=== PATIENT | female | born 1955 | race Caucasian/White ===

== ENCOUNTER 2020-01-31 14:20 | Emergency (ER) | payer MEDICARE, SELFPAY ==
[2020-01-31 14:21] VITALS: BP 186/75; PULSE 68; RESP 16; TEMP 36.6; O2SAT 97; BMI 39.1
--- NOTE | 2020-01-31 14:23 | EKG12_ITS ---
Test Reason : Blood Pressure : / mmHG Vent. Rate : 068 BPM Atrial Rate : 068 BPM P-R Int : 182 ms QRS Dur : 080 ms QT Int : 410 ms P-R-T Axes : 019 001 029 degrees QTc Int : 435 ms Normal sinus rhythm Normal ECG Confirmed by MARIA DEL ROSARIO GUPTA, NITIN ([id number]), writer editor PRINCESS HATCH ([id number]) on 02/08/2020 11:11:37 A M Referred By: YULY Confirmed By:JIMMY MIX MD
--- NOTE | 2020-01-31 14:28 | ED.VIS.GEN ---
History of Present Illness Chief Complaint: Chest Pain Informant: Patient Narrative: 64-year-old female presenting with intermittent chest pressure. She states that this started on Tuesday. She states that it initially was lasting about 10 minutes at a time. Lightheadedness, dizziness, cough, shortness of breath, diaphoresis associated with this. She says that started to have this mild chest pressure at about 930 and is been persistent until now it is down to a 1 on the pain scale. Does not have any known exposure to COVID?19. She does state that she lost her sense of taste on Tuesday. She has no other symptoms except for the chest pain. Her only medical problems are seizure disorder and anxiety and depression. She denies any cardiac history. Last stress test was 18 years ago. Past Medical History - Allergies and Home Meds Allergies/Adverse Reactions: Allergies dicloxacillin [Dicloxacillin] Allergy (Verified 01/31/20 14:25) Rash latex Allergy (Verified 01/31/20 14:25) Rash morphine Adverse Reaction (Verified 01/31/20 14:25) HALLUCINATE Primary Care Physician: Cliff Sparks MD [Primary Care Provider] - Past Medical History: - - Anxiety, depression, seizure disorder Surgical History: noncontributory Lives: Alone Smoking Status: Never smoker Alcohol: None Drugs: None Review of Systems General: Reports: - - Loss of taste. Denies: Chills, Fever Eyes: Denies: Visual changes - bilaterally, Diplopia ENT: Denies: Rhinorrhea, Sore throat Cardiovascular: Reports: Chest pain Respiratory: Denies: Dyspnea, Cough, Sputum Gastrointestinal: Denies: Abdominal pain, Nausea, Vomiting Genitourinary: Reports: Frequency Musculoskeletal: Denies: Myalgias, Arthralgias Skin: Denies: Rash, Abscess Neurological: Denies: Headache, Weakness Psych: Denies: Depression, Anxiety Physical Exam Vital Signs/Narrative: Vital Signs Temp Pulse Resp BP Pulse Ox 01/31/20 14:21 97.8 F 68 16 186/75 H 97 General: Well nourished, No Acute Distress Head: Normocephalic, Atraumatic Eyes: Perrl, EOMI. Negative for: Scleral icterus ENT: Moist mucous membranes. Negative for: No rhinorrhea Cardiovascular: Regular rate, Regular rhythm Respiratory: No distress, CTA bilaterally. Negative for: Wheezing Extremities: Nontender, No edema Skin: Normal color, No rash Neurological: Alert, Oriented x3 Psychological: Normal affect, Normal Mood Diagnostic/Tx/Re-eval Clinical Impression(s) from Imaging Studies Chest X-Ray 01/31/20 14:50 IMPRESSION: Normal x-ray examination of the chest. Electronically Signed: Willard Don MD at 15:09 EDT , Service support , Laboratory Data 01/31/20 01/31/20 01/31/20 14:23 14:23 14:23 WBC 6.3 RBC 3.94 L Hgb 13.0 Hct 38.1 MCV 96.7 MCH 33.0 H MCHC 34.1 RDW Std Deviation 42.5 RDW Coeff of Chris 11.9 Plt Count 193 MPV 11.2 Immature Gran % (Auto) 0.300 Neut % (Auto) 50.4 Lymph % (Auto) 39.3 Bled[place]e % (Auto) 7.5 Eos % (Auto) 2.2 Baso % (Auto) 0.3 Absolute Neuts (auto) 3.2 Absolute Lymphs (auto) 2.47 Nucleated RBC % 0 PT 12.5 INR 1.0 D-Dimer Quant (PE/DVT) Sodium 139 Potassium 3.8 Chloride 105 Carbon Dioxide 27.0 Anion Gap 7 BUN 12 Creatinine 0.88 Estim Creat Clear Calc 62.81 Est GFR (MDRD) Af Amer 83 Est GFR (MDRD) Non-Af 69 BUN/Creatinine Ratio 13.7 Glucose 112 H Calcium 8.9 Troponin I < 0.015 Urine Color Urine Clarity Urine pH Ur Specific [place] Urine Protein Urine Glucose (UA) Urine Ketones Urine Occult Blood Urine Nitrite Urine Bilirubin Urine Urobilinogen Ur Leukocyte Esterase Urine RBC Urine WBC Ur Squamous Epith Cells Urine Bacteria Urine Mucus 01/31/20 01/31/20 01/31/20 14:23 16:13 16:59 WBC RBC Hgb Hct MCV MCH MCHC RDW Std Deviation RDW Coeff of Chris Plt Count MPV Immature Gran % (Auto) Neut % (Auto) Lymph % (Auto) Bledso[place] % (Auto) Eos % (Auto) Baso % (Auto) Absolute Neuts (auto) Absolute Lymphs (auto) Nucleated RBC % PT INR D-Dimer Quant (PE/DVT) 0.48 Sodium Potassium Chloride Carbon Dioxide Anion Gap BUN Creatinine Estim Creat Clear Calc Est GFR (MDRD) Af Amer Est GFR (MDRD) Non-Af BUN/Creatinine Ratio Glucose Calcium Troponin I < 0.015 Urine Color Yellow Urine Clarity Sl. Cloudy Urine pH 7.0 Ur Specific [place] 1.005 Urine Protein Negative Urine Glucose (UA) Normal Urine Ketones Negative Urine Occult Blood Negative Urine Nitrite Negative Urine Bilirubin Negative Urine Urobilinogen Normal Ur Leukocyte Esterase 100 H Urine RBC 0 SEEN Urine WBC 5-10 SEEN Ur Squamous Epith Cells 0-5 SEEN Urine Bacteria RARE Urine Mucus 0 SEEN - Rhythm Strip Rhythm Strip: Sinus Rhythm Rate: 68 - EKG Initial EKG Interpretation: Sinus Rhythm, No Acute Injury Pattern Follow-up EKG Interpretation: Sinus Rhythm, No Acute Injury Pattern Prior: Unchanged - Medical Decision Making Patient presents for evaluation of intermittent chest pain after losing her sense of taste. She states that it feels like pressure but she has no other associated symptoms except for loss of taste. She has had pain since 930 this morning which is resolving. Her heart score is a 1. Both of her EKGs are normal sinus rhythm without any signs of ischemic injury. 2 troponins are negative. Her other lab work is normal. D-dimer is negative. Ultimately her work-up is normal I do not believe this is cardiac related patient is counseled that she should follow-up with her PCP for outpatient stress testing and follow-up for her chest pain. She is counseled she may return at anytime with any concern. Patient stable for discharge. Impression: 1. Chest pain #2 loss of taste 3. Possible exposure to COVID-19 ED Disposition - Plan for ED Patient: Disposition: Home or Assisted Living Instructions: ED Chest Pain Atypical Unkn Cause Referrals: Cliff Sparks MD [Primary Care Provider] -
[2020-01-31 14:39] LABS: Absolute Lymphocyte Count 2.47 X10^3/uL (0.83-4.51); Absolute Neutrophil Count 3.2 X10^3/uL (2.0-7.7); Basophil# 0.02 X10^3/uL; Basophil% 0.3 % (0-1); Eosinophil# 0.14 X10^3/uL; Eosinophils% 2.2 % (0-5); Hematocrit 38.1 % (37-47); Lymphocyte # 2.47 X10^3/ul (4.0); Lymphocyte % 39.3 % (19-41); Mean Corp Hgb Conc 34.1 g/dL (32-36); Mean Corpuscular Volume 96.7 fL (81-99); Mean Platelet Vol. 11.2 fl (6.2-12.0); Monocyte# 0.47 X10^3/uL; Monocyte% 7.5 % (0-10); NRBC Flagged by Analyzer 0 % (0-5); Neutrophil # 3.16 X10^3/uL (2.7-7.7); Neutrophil % 50.4 % (47-70); Platelet Count 193 K/mm3 (150-450); RBC Distribution Width CV 11.9 % (11.6-14.6); RBC Distribution Width SD 42.5 fl (35.1-43.9); Red Blood Count 3.94 M/mm3 (4.2-5.4); White Blood Count 6.3 K/mm3 (4.4-11.0)
[2020-01-31 14:47] LABS: Prothrombin Time (Protime)PT. 12.5 SECONDS (11.7-14.9)
--- NOTE | 2020-01-31 14:50 | RAD_ITS ---
STUDY: X-RAY CHEST REASON FOR EXAM: Female, 64 years old. Chest pain TECHNIQUE: Single AP portable view of the chest. COMPARISON: 2008 FINDINGS: EKG leads overlie the chest The lungs are clear and expanded. There is no demonstrated pleural abnormality. Normal size heart. Normal mediastinum and olinda. Normal visualized pulmonary arteries. Normal visualized aortic arch and descending thoracic aorta. Normal visualized thoracic spine. Normal visualized ribs, clavicles, and shoulders. There is no demonstrated abnormality of the visualized soft tissue structures of the upper abdomen. RAD/Chest 1 View (Portable) IMPRESSION: Normal x-ray examination of the chest. Electronically Signed: Willard Don MD at 15:09 EDT , Service support ,
[2020-01-31 14:56] LABS: Anion Gap 7 (5-15); BUN 12 mg/dL (7-18); BUN/Creat Ratio 13.7 RATIO (10-20); Calcium,Total 8.9 mg/dL (8.5-10.1); Chloride 105 mmol/L (98-107); Creatinine, Serum 0.88 mg/dL (0.55-1.02); EST Glomerular Filtration Rate 69 mL/min (>60); Est Glom Filt Rate - Afr Amer 83 mL/min (>60); Estimated Creatinine Clearance 62.81 ml/min; Glucose 112 mg/dL (74-106); Potassium 3.8 mmol/L (3.5-5.1); Sodium Level 139 mmol/L (136-145)
[2020-01-31 15:33] LABS: D-Dimer Quantitative (DVT/PE) 0.48 FEU/ug/m (0.27-0.49)
[2020-01-31 16:30] LABS: Mucous, Urine 0 SEEN /hpf (<or=2+); Red Blood Cells-Urine 0 SEEN /hpf (0-5)
[2020-01-31 16:31] LABS: Color, Urine Yellow (Yellow); Glucose, Dipstick Normal (Normal); Ketone-Dipstick Negative (Negative); Leukocyte Esterase-Dipstick 100 /ul (Negative); Nitrite-Dipstick Negative (Negative); Occult Blood-Urine Negative /ul (Negative); Protein-Dipstick Negative (Negative); Specific Gravity, Urine 1.005 (1.002-1.030); Urine Bilirubin Dipstick Negative (Negative); Urine Clarity Sl. Cloudy (Clear); Urine Urobilinogen Normal (Normal)
[2020-01-31 16:34] VITALS: BP 149/83; PULSE 61; RESP 13; O2SAT 96
[2020-01-31 16:48] LABS: Bacteria RARE /hpf (None Seen); Squamous Epithelial Cells - UA 0-5 SEEN /hpf (5-10); White Blood Cells 5-10 SEEN /hpf (0-5)
--- NOTE | 2020-01-31 17:20 | EKG12_ITS ---
Test Reason : Blood Pressure : / mmHG Vent. Rate : 058 BPM Atrial Rate : 058 BPM P-R Int : 196 ms QRS Dur : 082 ms QT Int : 442 ms P-R-T Axes : 020 -02 030 degrees QTc Int : 433 ms Sinus bradycardia Otherwise normal ECG Confirmed by MARIA DEL ROSARIO GUPTA, NITIN ([id number]), photographic editor PRINCESS HATCH ([id number]) on 02/08/2020 11:11:56 A M Referred By: SUJEY Confirmed By:JIMMY MIX MD
[2020-01-31 18:30] VITALS: BP 171/107; PULSE 66; RESP 16
[2020-01-31 19:00] VITALS: PULSE 76; RESP 19
== END 2020-01-31 19:36 | disposition home or self-care (01) ==
PROVIDERS: Emergency Provider Student in an Organized Health Care Education/Training Program; PCP Family Medicine
DX: R07.89 Other chest pain (principal); R43.9 Unspecified disturbances of smell and taste; F32.9 Major depressive disorder, single episode, unspecified; G40.909 Epilepsy, unspecified, not intractable, without status epilepticus; Z79.899 Other long term (current) drug therapy
CPT/HCPCS: 71045; 80048; 81001; 84484; 85025; 85379; 85610; 87635; 93005; 94799; 99284; A4216; U0003

== ENCOUNTER 2022-06-22 09:47 | Observation (INO) | payer MEDICARE, SELFPAY ==
[2022-06-22] VITALS (10 sets, daily range): BP systolic 129–162; BP diastolic 72–93; PULSE 66–79; RESP 16–18; TEMP 36.1–36.6; O2SAT 96–100; BMI 43.8; BMI 40.4
--- NOTE | 2022-06-22 10:10 | NURSING ---
CBC IS CLOTTED. LAB WILL REPRINT A LABEL
--- NOTE | 2022-06-22 10:13 | ED.VIS.CHEST ---
HPI History of Present Illness Chief Complaint: Chest Pain Informant: patient Onset/Context/Timing Onset: Today Activity at onset: gradual Timing: Intermittent Quality: Positive for Dull and Heaviness Location: Left Chest Current Severity: Gone Maximum Severity: Mild Worsened By: Exertion Relieved By: Rest Associated Symptoms: Positive for Dyspnea and Palpitations; Negative for Nausea, Vomiting, Diaphoresis, Cough, Fever, Lightheadedness or Acid Reflux Narrative Narrative: 67-year-old female history of seizure disorder for which she had brain surgery. No cardiac history. No prior stress test or heart cath. States last night she had left-sided chest discomfort and accelerated heart rate as high as 120. That now is totally resolved. Also states when she tries to exercise on a rebounder which is like a small trampoline she gets exertional chest pain or shortness of breath and has to stop and her symptoms resolved. She is also noticed that recently walking up steps. She is never had any type of cardiac work-up or cardiac history. She had a brother with a stent and another brother with A. fib. Currently she is symptom-free. She is never had a DVT or PE. No recent travel, surgery or immobilization. Prior Similar Symptoms: Yes Recent Illness/Hospitalization: No CVD Risk Factors: Negative for Hypertension or Diabetes PE Risk Factors: Negative for Recent Travel/Surgery, Recent Immobilization, Prior DVT or PE, Cancer or OCP + Smoking + >/=35 TAD Risk Factors: Negative for Marfan's Syndrome [facility] Medical History Seizure Home Medications cholecalciferol (vitamin D3) 50 mcg (2,000 unit) tablet (Vitamin D3) 2,000 unit PO DAILY supplement 09/29/13 [History Last Taken 06/21/22] black cohosh root extract 2.5 mg tablet 5 mg PO DAILY supplement 06/22/22 [History Last Taken 06/21/22] black cohosh root extract 2.5 mg tablet 10 mg PO QHS supplement 06/22/22 [History Last Taken 06/21/22] lacosamide 50 mg tablet 50 mg PO DAILY 06/22/22 [History Last Taken 06/22/22] lacosamide 50 mg tablet 100 mg PO QHS 06/22/22 [History Last Taken 06/21/22] magnesium oxide 400 mg PO QHS supplement 06/22/22 [History Last Taken 06/21/22] red yeast rice 600 mg tablet 1,200 mg PO DAILY cholesterol 06/22/22 [History Last Taken 06/21/22] Allergy/AdvReac Type Severity Reaction Status Date / Time dicloxacillin [Dicloxacillin] Allergy Rash Verified 01/31/20 14:25 latex Allergy Rash Verified 01/31/20 14:25 morphine AdvReac HALLUCINATE Verified 01/31/20 14:25 Social History Smoking Status: Never smoker ROS ROS ED ROS Narrative Exertional chest pain shortness of breath. Review of Systems ROS Unobtainable: Denies due to encephalopathy Constitutional Constitutional ED: Denies chills or fever(s) Eyes Eyes: Reports none ENT ENT ED: Denies ear pain Cardiovascular Cardiovascular: Reports as per HPI, chest pain, palpitations and racing heartbeat Respiratory/Chest Respiratory/Chest: Reports dyspnea; Denies cough Gastrointestinal Gastrointestinal: Denies abdominal pain Genitourinary Genitourinary ED: Denies dysuria or hematuria Musculoskeletal Musculoskeletal: Denies arthralgias Integumentary Denies abscess Neurologic Neurologic: Denies headache(s) Endocrine Endocrinology: Denies cold intolerance Hematologic/Lymphatic Hematologic/Lymphatic: Denies easy bleeding Allergic/Immunologic Allergic/Immunologic ED: Denies mouth swelling or tongue swelling EXAM Physical Exam Narrative Exam Narrative: 67-year-old female no acute distress. Vital signs stable afebrile. Pulse ox 98%. Currently symptom-free and pain-free. H EENT exam normal. Neck nontender no JVD. Lungs clear to auscultation bilaterally. Heart regular rhythm rate about 70s no murmur. Chest wall nontender. Abdomen soft nontender. Moving all 4 extremities. Equal symmetrical radial pulses. Calves are nontender without edema or cords. Neurologically she is awake and alert with no focal motor deficits. Const Vital Signs: 06/22/22 09:49 06/22/22 09:54 06/22/22 09:51 Temperature 97.5 F L 97 F L Temperature Source Temporal Temporal Pulse Rate 73 71 Respiratory Rate 18 18 Blood Pressure 154/93 H 154/93 H Blood Pressure Mean 113 113 Pulse Ox 98 96 Oxygen Delivery Method Room Air Room Air Room Air Positive well nourished, well developed and obese; Negative for cachectic, contractures or unkempt General Appearance ED: well developed; Negative for unkempt, cachectic, contractures or pallor Nutritional Appearance: obese; Negative for cachectic HEENT Reports moist mucous membranes; Denies dry mucous membranes normocephalic and atraumatic; Negative for trauma or tenderness Mouth ED: No dry mucous membranes Mouth: No dry mucous membranes Eyes PERRL and EOMs intact bilaterally General Eye ED: Negative for pale conjunctiva or scleral icterus Neck no lymphadenopathy, supple and no JVD General: Negative for tenderness Chest Wall inspection of chest normal and palpation of chest normal Chest: Negative for tenderness Resp normal respiratory effort and clear to auscultation bilaterally Effort and Inspection: Negative for respiratory distress Auscultation: Negative for rales, rhonchi or wheezes Cardio regular rate, regular rhythm, S1 normal heart sound, S2 normal heart sound and no murmurs Peripheral Pulses: pulses 2+ throughout GI normal to inspection, nondistended, normoactive bowel sounds, soft to palpation, non-tender, non-distended and no masses Auscultation: Negative for hyperactive bowel sounds Palpation: Negative for splenomegaly or mass Back/Spine no CVA tenderness and no thoracic nor lumbar tenderness General Back: Negative for CVA tenderness Cervical Spine: Negative for cervical spine tenderness Extremity normal to inspection General Extremety ED: Negative for edema or pulses abnormal General Extremity: Negative for edema or pulses abnormal Neuro oriented x3 and CN's II-XII intact bilaterally Sensorium / Orientation: awake, alert, oriented to person, oriented to place and oriented to time; Negative for confused, lethargic or stuporous Motor Exam: strength 5/5 throughout Psych mental status grossly normal Appearance: Negative for unkempt Attitude: No agitated Mood & Affect: Negative for depressed, anxious or tearful Skin no rashes or lesions noted and no wounds General Skin Exam: Negative for jaundice or pallor Rashes: No rashes noted Trauma: Negative for abrasion or laceration MDM MDM MDM Narrative Medical decision making narrative: 67-year-old female with exertional chest pain. She will undergo cardiac work-up. Her history is concerning enough that I will speak to the hospitalist about admitting her for provocative cardiac testing. Repeat exam at 11:30 AM patient doing well. Symptom-free. We went over her test results, EKG and chest x-ray. I am concerned for her exertional chest pain she has been having I will speak to the hospitalist to bring her in for a stress test and further cardiac work-up. Discussed with the patient and she is comfortable with being admitted. Lab Data Attestation: I reviewed the patient's lab results. Lab results narrative: CBC White count 9. H&H 13 and 37. Platelets 166. Electrolytes unremarkable. Gap is 6. BUN of 21 creatinine 0.8. Troponin normal at 7. Chest x-ray negative. Labs: Laboratory Results - last 24 hr 06/22/22 06/22/22 06/22/22 09:33 09:33 10:15 WBC Cancelled 9.3 Corrected WBC Cancelled RBC Cancelled 4.01 L Hgb Cancelled 13.0 Hct Cancelled 37.9 MCV Cancelled 94.5 MCH Cancelled 32.4 H MCHC Cancelled 34.3 RDW Std Deviation Cancelled 42.6 RDW Coeff of Chris Cancelled 12.1 Plt Count Cancelled 166 MPV Cancelled 11.4 Immature Gran % (Auto) Cancelled 0.400 Neut % (Auto) Cancelled 67.8 Lymph % (Auto) Cancelled 24.7 [place] % (Auto) Cancelled 6.2 Eos % (Auto) Cancelled 0.6 Baso % (Auto) Cancelled 0.3 Absolute Neuts (auto) Cancelled 6.3 Absolute Lymphs (auto) Cancelled 2.29 Total Counted Cancelled Neutrophils % (Manual) Cancelled Band Neutrophils % Cancelled Lymphocytes % (Manual) Cancelled Monocytes % (Manual) Cancelled Eosinophils % (Manual) Cancelled Basophils % (Manual) Cancelled Metamyelocytes % Cancelled Myelocytes % Cancelled Promyelocytes % Cancelled Blast Cells % Cancelled Plasma Cell % (Manual) Cancelled Other Cells % Cancelled Nucleated RBC % Cancelled 0 Nucleated RBCs/100 WBC Cancelled Differential Comment Cancelled Diff Path Review Cancelled Hypersegmented Neuts Cancelled Atypical Lymphocytes Cancelled Reactive Lymphocytes Cancelled Smudge Cells Cancelled Toxic Granulation Cancelled Toxic Vacuolation Cancelled Dohle Bodies Cancelled Himanshu Rods Cancelled Platelet Estimate Cancelled Plt Morphology Comment Cancelled RBC Morphology Cancelled Polychromasia Cancelled Hypochromasia Cancelled Poikilocytosis Cancelled Basophilic Stippling Cancelled Anisocytosis Cancelled Microcytosis Cancelled Macrocytosis Cancelled Spherocytes Cancelled Sickle Cells Cancelled Target Cells Cancelled Tear Drop Cells Cancelled Ovalocytes Cancelled Stomatocytes Cancelled Kramer-[place] Bodies Cancelled [place] Cells Cancelled Bite Cells Cancelled Crenated Cell Cancelled Acanthocytes (Spur) Cancelled Rouleaux Cancelled Schistocytes Cancelled Sodium 141 Potassium 4.0 Chloride 111 H Carbon Dioxide 24.0 Anion Gap 6 BUN 21 H Creatinine 0.85 Estim Creat Clear Calc 57.79 Est GFR (MDRD) Af Amer 86 Est GFR (MDRD) Non-Af 71 BUN/Creatinine Ratio 24.8 H Glucose 99 Calcium 9.3 Troponin I High Sens 7 Radiography Chest X-Ray - ED: 1 View, Read by ED Physician, Read by Radiologist, Heart, Lungs, Mediastinum, Bony Structures, No Acute Disease and Chronic Changes Diagnostic Testing: Clinical Impression(s) from Imaging Studies Chest X-Ray 06/22/22 10:30 IMPRESSION: No acute abnormality is seen. Electronically Signed: Messi Swan MD at 10:56 EST , Rhythm Strip Rhythm Strip: Sinus Rhythm Rate: 73 Ectopy: None EKG Initial EKG: Attestation: I personally reviewed and interpreted this EKG as follows: Interpretation: Sinus Rhythm and No Acute Injury Pattern Comments: Normal sinus rhythm rate of 73 no acute signs of [place] or ischemia. Discharge Plan Triage Chief Complaint: Chest Pain ED Provider: Antoine Jackson Dx/Rx/DC Orders Clinical Impression: Chest pain, exertional, Palpitations Prescriptions: No Action cholecalciferol (vitamin D3) [Vitamin D3] 2,000 UNIT tablet 2,000 unit PO DAILY lacosamide 50 mg tablet 50 mg PO DAILY lacosamide 50 mg tablet 100 mg PO QHS red yeast rice 600 mg Tablet 1,200 mg PO DAILY magnesium oxide 400 mg magnesium Tablet 400 mg PO QHS black cohosh root extract 2.5 mg Tablet 5 mg PO DAILY black cohosh root extract 2.5 mg Tablet 10 mg PO QHS Primary Care Provider: Cliff Sparks Referrals: Cliff Sparks MD [Primary Care Provider] - Disposition Disposition: Acute Care [facility]
[2022-06-22 10:25] LABS: Absolute Lymphocyte Count 2.29 X10^3/uL (0.83-4.51); Absolute Neutrophil Count 6.3 X10^3/uL (2.0-7.7); Basophil# 0.03 X10^3/uL; Basophil% 0.3 % (0-1); Eosinophil# 0.06 X10^3/uL; Eosinophils% 0.6 % (0-5); Hematocrit 37.9 % (37-47); Lymphocyte # 2.29 X10^3/ul (0.83-4.51); Lymphocyte % 24.7 % (19-41); Mean Corp Hgb Conc 34.3 g/dL (32-36); Mean Corpuscular Hgb 32.4 pg (27.0-32.0); Mean Corpuscular Volume 94.5 fL (81-99); Mean Platelet Vol. 11.4 fl (6.2-12.0); Monocyte# 0.58 X10^3/uL; Monocyte% 6.2 % (0-10); NRBC Flagged by Analyzer 0 % (0-5); Neutrophil # 6.29 X10^3/uL (2.7-7.7); Neutrophil % 67.8 % (47-70); Platelet Count 166 K/mm3 (150-450); RBC Distribution Width CV 12.1 % (11.6-14.6); RBC Distribution Width SD 42.6 fl (35.1-43.9); Red Blood Count 4.01 M/mm3 (4.2-5.4); White Blood Count 9.3 K/mm3 (4.4-11.0)
[2022-06-22] MEDS: Aspirin 325 MG Tablet PO (10:26)
[2022-06-22 10:30] LABS: Anion Gap 6 (5-15); BUN 21 mg/dL (7-18); BUN/Creat Ratio 24.8 RATIO (10-20); Calcium,Total 9.3 mg/dL (8.5-10.1); Chloride 111 mmol/L (98-107); Creatinine, Serum 0.85 mg/dL (0.55-1.02); EST Glomerular Filtration Rate 71 mL/min (>60); Est Glom Filt Rate - Afr Amer 86 mL/min (>60); Estimated Creatinine Clearance 57.79 ml/min; Glucose 99 mg/dL (74-106); Sodium Level 141 mmol/L (136-145); Troponin-I HS (w/2H Reflex) 7 pg/mL (3.0-54.0)
--- NOTE | 2022-06-22 10:30 | RAD_ITS ---
STUDY: X-RAY CHEST REASON FOR EXAM: Female, 67 years old. Chest pain TECHNIQUE: Single AP portable view of the chest. COMPARISON: Comparison is made with prior study 01/31/2020. FINDINGS: EKG electrodes are seen. The lungs are clear and expanded. There is no demonstrated pleural abnormality. Normal size heart. Normal mediastinum and olinda. Normal visualized pulmonary arteries. There is atherosclerotic tortuosity of the aortic arch and descending thoracic aorta. There are diffuse degenerative changes of the visualized thoracic spine. Status post left shoulder replacement. There is no demonstrated abnormality of the visualized soft tissue structures of the upper abdomen. RAD/Chest 1 View (Portable) IMPRESSION: No acute abnormality is seen. Electronically Signed: Messi Swan MD at 10:56 EST ,
--- NOTE | 2022-06-22 11:41 | NURSING ---
DR DEWITT FOR DR EDGE
--- NOTE | 2022-06-22 11:49 | PCM.HP.STD ---
[facility] - General General Date of Admission: 06/22/22 Date of Service: 06/22/22 Chief Complaint: Dyspnea on exertion and palpitation. Left-sided chest discomfort and palpitation, started last night. HPI Narrative SHUKRI MALHOTRA, is a 67 F came to ED when she had sudden onset of left-sided chest pain along with mild shortness of breath and palpitation at about 11:30 PM while she was at sleep. She went to bed normal. She never had any similar chest pain like this. Chest pain was intermittent, dull and heaviness on left side, 3-09/2009 intensity, without any radiation associated with shortness of breath, dyspnea and palpitation. At that time she took her blood pressure and it was 120/100 and heart rate was 120/min. She states he is very healthy never had any KS. She had a stress test about 25 years ago and was normal. She never had echo or cardiac cath. She denies history of diabetes and hypertension. She has a history of epilepsy for which she had left temporal surgery. Present time patient does not have chest pain or shortness of breath and she is comfortable. Denies prior history of DVT or PE. Family history: Positive for 2 brothers have heart failure status post AICD. Brother has cardiac stent. Social history not a smoker. Does not drink alcohol or substance use. [facility] Medical History Seizure Home Medications cholecalciferol (vitamin D3) 50 mcg (2,000 unit) tablet (Vitamin D3) 2,000 unit PO DAILY supplement 09/29/13 [History Last Taken 06/21/22] black cohosh root extract 2.5 mg tablet 5 mg PO DAILY supplement 06/22/22 [History Last Taken 06/21/22] black cohosh root extract 2.5 mg tablet 10 mg PO QHS supplement 06/22/22 [History Last Taken 06/21/22] lacosamide 50 mg tablet 50 mg PO DAILY 06/22/22 [History Last Taken 06/22/22] lacosamide 50 mg tablet 100 mg PO QHS 06/22/22 [History Last Taken 06/21/22] magnesium oxide 400 mg PO QHS supplement 06/22/22 [History Last Taken 06/21/22] red yeast rice 600 mg tablet 1,200 mg PO DAILY cholesterol 06/22/22 [History Last Taken 06/21/22] Allergy/AdvReac Type Severity Reaction Status Date / Time dicloxacillin [Dicloxacillin] Allergy Rash Verified 01/31/20 14:25 latex Allergy Rash Verified 01/31/20 14:25 morphine AdvReac HALLUCINATE Verified 01/31/20 14:25 Surgical History H/O craniotomy H/O: hysterectomy History of cholecystectomy Shoulder joint replacement status Total knee replacement status Social History Smoking Status: Never smoker ROS ROS Narrative Constitutional: No recent fever or URI symptoms. HEENT: Reports systems reviewed and no addt'l complaints, except as documented Respiratory/Chest: For last few days she gets short of breath on exertion going up stairs or doing a Rollator exercise. Rest as described in HPI. Denies syncope. Denies chronic lung disease. Did not had COVID-vaccine. Gastrointestinal: Denies coffee ground emesis, hematemesis or vomiting. No abdominal pain. Genitourinary: Denies burning urination or new urinary tract symptoms Musculoskeletal: Bilateral knee replacement and left shoulder replacement. Chronic arthritis. Patient has chronic knees joint pain and limited range of motion Neurologic: Denies seizure-like activity skin: No ulcer. No rash Endocrinology: Reports systems reviewed and no addt'l complaints, except as documented Hematologic/Lymphatic: Reports systems reviewed and no addt'l complaints, except as documented Rest 14 ROS are negative except as mentioned in HPI Vital Signs Vital Signs Vital Signs: 06/22/22 09:49 06/22/22 09:54 06/22/22 09:51 Temperature 97.5 F L 97 F L Temperature Source Temporal Temporal Pulse Rate 73 71 Respiratory Rate 18 18 Blood Pressure 154/93 H 154/93 H Blood Pressure Mean 113 113 Pulse Ox 98 96 Oxygen Delivery Method Room Air Room Air Room Air Weight Weight: 263 lb 3.711 oz Body Mass Index (BMI) 43.8 Physical Exam Narrative Physical exam General: Alert, Oriented x3, Cooperative, morbid obesity BMI 40.4 kg/m? HEENT: Atraumatic, PERRLA, EOMI, Normocephalic Oral: Oral mucosa moist. No Gingival or Mucosal Lesions/ Ulcerations Neck: Supple, No JVD, Negative Carotid Bruits Lungs: Air entry diminished in bilateral lung bases. No crepitation/rhonchi Cardiovascular: Regular rate, Regular Rhythm, Normal S1, Normal S2, No murmurs Abdomen: Bowel Sounds Present, Soft, Non Tender, Non-Distended : No renal angle tenderness. No suprapubic tenderness. Extremities: Bilateral lower extremity swelling probably fat. No pitting edema. Capillary Refill Less than 3 Seconds Skin: No rashes, No breakdown Musculoskeletal: Bilateral TKR. Left shoulder replacement. ROM limited. No Tenderness to Palpation of Joints or Extremities Neurological: No recent seizure or focal symptoms. Cranial nerves II-XII grossly intact, DTR 2+/4 and Symmetrical, Neuro grossly intact Psych/Mental Status: Normal Affect, Appropriate. Results Lab / Micro Data Result Diagrams: 06/22/22 10:15 06/22/22 09:33 Labs: Laboratory Results - last 24 hr 06/22/22 09:33: WBC Cancelled, Corrected WBC Cancelled, RBC Cancelled, Hgb Cancelled, Hct Cancelled, MCV Cancelled, MCH Cancelled, MCHC Cancelled, RDW Std Deviation Cancelled, RDW Coeff of Chris Cancelled, Plt Count Cancelled, MPV Cancelled, Immature Gran % (Auto) Cancelled, Neut % (Auto) Cancelled, Lymph % (Auto) Cancelled, Emery % (Auto) Cancelled, Eos % (Auto) Cancelled, Baso % (Auto) Cancelled, Absolute Neuts (auto) Cancelled, Absolute Lymphs (auto) Cancelled, Total Counted Cancelled, Neutrophils % (Manual) Cancelled, Band Neutrophils % Cancelled, Lymphocytes % (Manual) Cancelled, Monocytes % (Manual) Cancelled, Eosinophils % (Manual) Cancelled, Basophils % (Manual) Cancelled, Metamyelocytes % Cancelled, Myelocytes % Cancelled, Promyelocytes % Cancelled, Blast Cells % Cancelled, Plasma Cell % (Manual) Cancelled, Other Cells % Cancelled, Nucleated RBC % Cancelled, Nucleated RBCs/100 WBC Cancelled, Differential Comment Cancelled, Diff Path Review Cancelled, Hypersegmented Neuts Cancelled, Atypical Lymphocytes Cancelled, Reactive Lymphocytes Cancelled, Smudge Cells Cancelled, Toxic Granulation Cancelled, Toxic Vacuolation Cancelled, Dohle Bodies Cancelled, Himanshu Rods Cancelled, Platelet Estimate Cancelled, Plt Morphology Comment Cancelled, RBC Morphology Cancelled, Polychromasia Cancelled, Hypochromasia Cancelled, Poikilocytosis Cancelled, Basophilic Stippling Cancelled, Anisocytosis Cancelled, Microcytosis Cancelled, Macrocytosis Cancelled, Spherocytes Cancelled, Sickle Cells Cancelled, Target Cells Cancelled, Tear Drop Cells Cancelled, Ovalocytes Cancelled, Stomatocytes Cancelled, [address] Bodies Cancelled, It[place] Cells Cancelled, Bite Cells Cancelled, Crenated Cell Cancelled, Acanthocytes (Spur) Cancelled, Rouleaux Cancelled, Schistocytes Cancelled 06/22/22 09:33: Sodium 141, Potassium 4.0, Chloride 111 H, Carbon Dioxide 24.0, Anion Gap 6, BUN 21 H, Creatinine 0.85, Estim Creat Clear Calc 57.79, Est GFR (MDRD) Af Amer 86, Est GFR (MDRD) Non-Af 71, BUN/Creatinine Ratio 24.8 H, Glucose 99, Calcium 9.3, Troponin I High Sens 7 06/22/22 10:15: WBC 9.3, RBC 4.01 L, Hgb 13.0, Hct 37.9, MCV 94.5, MCH 32.4 H, MCHC 34.3, RDW Std Deviation 42.6, RDW Coeff of Chris 12.1, Plt Count 166, MPV 11.4, Immature Gran % (Auto) 0.400, Neut % (Auto) 67.8, Lymph % (Auto) 24.7, Emery % (Auto) 6.2, Eos % (Auto) 0.6, Baso % (Auto) 0.3, Absolute Neuts (auto) 6.3, Absolute Lymphs (auto) 2.29, Nucleated RBC % 0 Rhythm Strip Rhythm Strip: Sinus Rhythm Rate: 73 Ectopy: None Radiology Impression Chest X-Ray 06/22/22 10:30 IMPRESSION: No acute abnormality is seen. Electronically Signed: Messi Swan MD at 10:56 EST , Assessment & Plan Assessment/Plan (1) Chest pain, exertional: PLAN: Plan This 60-year-old female with no prior cardiac disease being admitted with evaluation for atypical chest pain and recent dyspnea on exertion palpitation. 1 atypical chest pain, dyspnea on exertion and palpitation: Patient is being admitted in PCU. 2 serial troponins are negative.Labs are normal. Fasting profile for tomorrow a.m. TSH tomorrow AM. Pharmacological nuclear stress test tomorrow morning. 2. History of seizure status post brain surgery: She does not remember exact procedure but seems patient has left temporal lobe surgery. She did not had seizure after that.. Patient on Vimpat 50 mg daily 100 mg HHS. . Blood pressure is elevated 154/93. Patient denies diagnosis of hypertension. Will need outpatient monitoring of BP either ABPM or home BPM 3. VT prophylaxis: Enoxaparin 40 mg daily . Living will/advanced directive/end of life care: Patient does have living will or advanced directive. After discussion of benefits/risks procedures involved with full code, DNR CC arrest and DNR CC, the patient opted for DNRCC arrest with no intubation Patient doesn't want artificial life support including intubation, tube feed, ventilator and/chest compression, central venous catheter, vasopressor and DC shock if needed Total time spent in [id number] encounter in discussion of advanced directive 16 minutes. Charges/Coding Visit Charges Inpatient E&M: 77330 Init Hosp L3 Procedures Hospitalists Procedures: 90979 Advncd Care Plan 30 Min
--- NOTE | 2022-06-22 12:01 | NURSING ---
PCU OBS ESDRAS EXERTIONAL CHEST PAIN AND DYSPNEA, PALPITATIONS
[2022-06-22 12:06] LABS: Reflex Troponin-HS? (from REC) Y
[2022-06-22 12:21] LABS: Magnesium 2.2 mg/dL (1.6-2.6)
[2022-06-22 13:14] LABS: Troponin-I HS 9 pg/mL (3.0-54.0)
[2022-06-22] MEDS: Enoxaparin 40 MG/0.4 ML Syringe SC (15:06)
[2022-06-22] MEDS: 0.9% Normal Saline 1,000 ML 75 ML IV (15:06)
[2022-06-22 15:09] LABS: Troponin-I HS 9 pg/mL (3.0-54.0)
[2022-06-22] MEDS: Magnesium Chloride 64 MG Delay Rel.Tablet 128 MG PO (21:07)
[2022-06-22] MEDS: Lacosamide 50 MG Tablet 100 MG PO (21:08)
[2022-06-23 02:56] VITALS: PULSE 59
[2022-06-23 03:05] VITALS: BP 125/74; PULSE 66; RESP 16; TEMP 36.5; O2SAT 98
[2022-06-23] MEDS: Aspirin E.C. 81 MG Tablet PO (04:56)
[2022-06-23 05:30] VITALS: BP 150/77; PULSE 63; RESP 18; TEMP 36.6; O2SAT 97
--- NOTE | 2022-06-23 05:55 | EKG12_ITS ---
Test Reason : Blood Pressure : / mmHG Vent. Rate : 073 BPM Atrial Rate : 073 BPM P-R Int : 188 ms QRS Dur : 080 ms QT Int : 392 ms P-R-T Axes : 021 -03 038 degrees QTc Int : 431 ms Normal sinus rhythm Inferior infarct , age undetermined Abnormal ECG When compared with ECG of 22-JUN-2022 09:48, No significant change was found Confirmed by MARIA DEL ROSARIO GUPTA, NITIN ([id number]), television news video editor PRINCESS HATCH ([id number]) on 07/01/2022 1:59:46 PM Referred By: ESDRAS Confirmed By:JIMMY MIX MD
[2022-06-23 07:15] VITALS: O2SAT 97
[2022-06-23 07:41] VITALS: PULSE 69
[2022-06-23 08:00] LABS: Cholesterol 236 mg/dL (200); High Density Lipoprotein 48 mg/dL; Thyroid Stim Hormone (TSH) 1.93 uIU/mL (0.358-3.74); Triglycerides 136 mg/dL; Very Low Density Lipoprotein 27 mg/dL (5-40)
--- NOTE | 2022-06-23 10:19 | DCINST_ITS ---
Discharge Instructions Diet Discharge Diet: Low fat / Low cholesterol and 2000 mg Sodium Diet Activity Weight Bearing Status: Weight bearing as tolerated Dressing / Incision Call your doctor if you observe: Fever of 101 or Higher, Numbness or Tingling, Change in Color, Inability to urinate, Inability to have a bowel movement, Using more than 1 pad per hour, Shortness of breath, Dizziness, Fainting spells, Swelling in the ankles, Chest pain, Increased palpitations (irregular heartbeat), Calf discomfort and Uncontrolled pain Follow Up Care Test Results: Test results from this visit will be discussed in further detail at your follow- up appointment, if applicable. Discharge Plan Admission Admit Date/Time: 06/22/22 11:43 Primary Reason for Your Visit: atypicaL CP, ACS ruled out Attending Provider: Korey Finn Primary Care Provider: Cliff Sparks Discharge Orders/Prescriptions Prescriptions: New atorvastatin 40 mg Tablet 40 mg PO QHS Qty: 30 1RF Continued cholecalciferol (vitamin D3) [Vitamin D3] 2,000 UNIT tablet 2,000 unit PO DAILY lacosamide 50 mg tablet 50 mg PO DAILY lacosamide 50 mg tablet 100 mg PO QHS red yeast rice 600 mg Tablet 1,200 mg PO DAILY magnesium oxide 400 mg magnesium Tablet 400 mg PO QHS black cohosh root extract 2.5 mg Tablet 5 mg PO DAILY black cohosh root extract 2.5 mg Tablet 10 mg PO QHS Referrals / Follow Up: Clfif Sparks MD [Primary Care Provider] - Within 2 Weeks Disposition Disposition (needs filled in before D/C Order can be placed): Home, Self Care
--- NOTE | 2022-06-23 10:27 | STRESSREP ---
Stress Test Report Date: 06/23/2022 Procedure: Exercise tolerance test/imaging study Indications: Chest pain Consent: Per the patient Procedure: The patient exercised on a Jesus protocol for 4-minute achieving a peak heart rate of 144 bpm (94% predicted maximal heart rate) with a peak blood pressure 180/82 mmHg and a peak MET capacity of 7 METs. The baseline ECG demonstrated normal sinus rhythm. The peak exercise ECG demonstrated no ischemic changes. Rare PVC noted. The functional capacity was considered suboptimal. There was no complaint of chest discomfort during exercise or recovery. The examination was discontinued secondary to target heart rate being achieved. The patient was injected with 15 mCi of technetium 99m Cardiolite and subsequently rest SPECT Cardiolite nuclear imaging was obtained in the horizontal long, vertical long, and short axis views. Post-exercise, the patient was injected with 44.8 mCi of technetium 99m Cardiolite and subsequently stress SPECT Cardiolite nuclear imaging was obtained in the horizontal long, vertical long, and short axis views. A gated Cardiolite study at peak stress was obtained. Rest and stress SPECT Cardiolite nuclear imaging status post realignment, normalization, and attenuation correction, demonstrates the appearance of relative uniform tracer uptake and myocardial perfusion appearing within normal limits. The gated Cardiolite study reported LVEF is 83%. Impression: 1. Technically adequate (percent predicted maximal heart rate greater than 85%) exercise tolerance test 2. Peak exercise ECG with no ischemic changes 3. Rare PVC noted in recovery 4. Rest and stress SPECT Cardiolite nuclear imaging demonstrate no reversible or fixed perfusion defect. 5. The gated Cardiolite study reports an LVEF of 83%. This note was generated with [employer] software. It may contain incorrect words, spelling, and punctuation that were not noted in checking the note before signing.
--- NOTE | 2022-06-23 12:24 | DS.PCM_ITS ---
Providers Date of Admission: 06/22/22 Date of Discharge: 06/23/22 Primary Care Physician: Dr. Cliff Sparks MD Reason For Visit: CHEST PAIN ON EXERTION Diagnosis Discharge Diagnosis (1) Chest pain, exertional: Status: Acute Code(s): R07.9 - Chest pain, unspecified Plan This 60-year-old female with no prior cardiac disease being admitted with evaluation for atypical chest pain and recent dyspnea on exertion palpitation. 1 atypical chest pain, dyspnea on exertion and palpitation: Patient is being admitted in PCU. 2 serial troponins are negative.Labs are normal. 06/23: Serial troponins are negative. Fasting profile shows LDL 161, total cholesterol 236. TSH normal. Patient had pharmacological stress test which did not show stress-induced ischemia. Patient agreed for starting on atorvastatin 4 0 mg daily at bedtime. Prescription sent. Patient also on multiple herbal medications including black cohosh and yeast rice. Patient is to discuss with PCP to continue or discontinue.. 2. History of seizure status post brain surgery: She does not remember exact procedure but seems patient has left temporal lobe surgery. She did not had seizure after that.. Patient on Vimpat 50 mg daily 100 mg HHS. 3.. Blood pressure is elevated 154/93. Patient denies diagnosis of hypertension. BP over hospital course fluctuates between 125/74-1 50/77. Will need outpatient monitoring of BP either ABPM or home BPM 4.. VT prophylaxis: Enoxaparin 40 mg daily Discharge medication reconciliation done. Discharge follow-up instructions completed. Discharge process discussed with the patient and all questions were answered to patient's satisfaction. Total time spent, exact 35 minutes on discharge meds reconciliation, examination, coordination of care with nurses and ancillary staff, review of imaging and blood test and discussion with the patient on follow-up instructions. . Laboratory Results 06/22/22 12:05: Troponin I High Sens 9 06/22/22 14:46: Troponin I High Sens 9 06/23/22 06:38: Triglycerides 136, Cholesterol 236 H, LDL Cholesterol 161 H, VLDL Cholesterol 27, HDL Cholesterol 48, TSH 1.93 Living will/advanced directive/end of life care: Patient does have living will or advanced directive. After discussion of benefits/risks procedures involved with full code, DNR CC arrest and DNR CC, the patient opted for DNRCC arrest with no intubation Patient doesn't want artificial life support including intubation, tube feed, ventilator and/chest compression, central venous catheter, vasopressor and DC shock if needed Medications at Discharge Home Medications cholecalciferol (vitamin D3) 50 mcg (2,000 unit) tablet (Vitamin D3) 2,000 unit PO DAILY supplement 09/29/13 black cohosh root extract 2.5 mg tablet 5 mg PO DAILY supplement 06/22/22 black cohosh root extract 2.5 mg tablet 10 mg PO QHS supplement 06/22/22 lacosamide 50 mg tablet 50 mg PO DAILY 06/22/22 lacosamide 50 mg tablet 100 mg PO QHS 06/22/22 magnesium oxide 400 mg PO QHS supplement 06/22/22 red yeast rice 600 mg tablet 1,200 mg PO DAILY cholesterol 06/22/22 atorvastatin 40 mg tablet 40 mg PO QHS #30 tabs 06/23/22 Physical Exam Narrative Physical exam General: Alert, Oriented x3, Cooperative, morbid obesity BMI 40.4 kg/m? HEENT: Atraumatic, PERRLA, EOMI, Normocephalic Oral: Oral mucosa moist. No Gingival or Mucosal Lesions/ Ulcerations Neck: Supple, No JVD, Negative Carotid Bruits Lungs: Air entry diminished in bilateral lung bases. No crepitation/rhonchi Cardiovascular: Regular rate, Regular Rhythm, Normal S1, Normal S2, No murmurs Abdomen: Bowel Sounds Present, Soft, Non Tender, Non-Distended : No renal angle tenderness. No suprapubic tenderness. Extremities: Bilateral lower extremity swelling probably fat. No pitting edema. Capillary Refill Less than 3 Seconds Skin: No rashes, No breakdown Musculoskeletal: Bilateral TKR. Left shoulder replacement. ROM limited. No Tenderness to Palpation of Joints or Extremities Neurological: No recent seizure or focal symptoms. Cranial nerves II-XII grossly intact, DTR 2+/4 and Symmetrical, Neuro grossly intact Psych/Mental Status: Normal Affect, Appropriate. Weight / BMI Weight Weight: 251 lb 8.759 oz Body Mass Index (BMI) 40.4 ABG / Lab / Microbiology Data Result Diagrams: 06/22/22 10:15 06/22/22 09:33 Laboratory: Laboratory Results - last 24 hr 06/22/22 12:05: Troponin I High Sens 9 06/22/22 14:46: Troponin I High Sens 9 06/23/22 06:38: Triglycerides 136, Cholesterol 236 H, LDL Cholesterol 161 H, VLDL Cholesterol 27, HDL Cholesterol 48, TSH 1.93 D/C Instructions Discharge Diet: Low fat / Low cholesterol and 2000 mg Sodium Diet Weight Bearing Status: Weight bearing as tolerated Call your doctor if you observe: Fever of 101 or Higher, Numbness or Tingling, Change in Color, Inability to urinate, Inability to have a bowel movement, Using more than 1 pad per hour, Shortness of breath, Dizziness, Fainting spells, Swelling in the ankles, Chest pain, Increased palpitations (irregular heartbeat), Calf discomfort and Uncontrolled pain Meaningful Use Info Meaningful Use Diagnoses (Choose all that apply): None applicable Discharge Plan Admission Admit Date/Time: 06/22/22 11:43 Primary Reason for Your Visit: atypicaL CP, ACS ruled out Attending Provider: Korey Finn Primary Care Provider: Cliff Sparks Discharge Orders/Prescriptions Prescriptions: New atorvastatin 40 mg Tablet 40 mg PO QHS Qty: 30 1RF Continued cholecalciferol (vitamin D3) [Vitamin D3] 2,000 UNIT tablet 2,000 unit PO DAILY lacosamide 50 mg tablet 50 mg PO DAILY lacosamide 50 mg tablet 100 mg PO QHS red yeast rice 600 mg Tablet 1,200 mg PO DAILY magnesium oxide 400 mg magnesium Tablet 400 mg PO QHS black cohosh root extract 2.5 mg Tablet 5 mg PO DAILY black cohosh root extract 2.5 mg Tablet 10 mg PO QHS Referrals / Follow Up: Cliff Sparks MD [Primary Care Provider] - Within 2 Weeks Disposition Disposition (needs filled in before D/C Order can be placed): Home, Self Care Charges/Coding Visit Charges Inpatient E&M: 67758 Disch Hosp >30min
[2022-06-23 12:45] VITALS: BP 132/79; PULSE 72; RESP 16; TEMP 36.8; O2SAT 99
--- NOTE | 2022-06-23 14:10 | PHA.DC.MC ---
Addendum entered and electronically signed by Mago Avitia 06/23/22 14:14: PT HESITANT ABOUT STARTING LIPITOR DUE TO SIDE EFFECTS. THIS [facility] EXPLAINED THAT LIPITOR CAN HAVE THE SAME SIDE EFFECTS RED YEAST RICE AND IT APPEARS THAT RED YEAST RICE ALONE IS NOT SUFFICIENT. PT THEN MORE RECEPTIVE TO STARTING LIPITOR. ADVISED PT THAT MAY NEED TO STOP RED YEAST RICE BUT TO CHECK WITH PCP. Original Note: Pharmacy Service has performed discharge medication reconciliation and counseling for this patient. 1. ATORVASTATIN 40MG PO QHS The patient's discharge medication list was reviewed for discrepancies and discrepancies were resolved. Home Medications cholecalciferol (vitamin D3) 50 mcg (2,000 unit) tablet (Vitamin D3) 2,000 unit PO DAILY supplement 09/29/13 black cohosh root extract 2.5 mg tablet 5 mg PO DAILY supplement 06/22/22 black cohosh root extract 2.5 mg tablet 10 mg PO QHS supplement 06/22/22 lacosamide 50 mg tablet 50 mg PO DAILY 06/22/22 lacosamide 50 mg tablet 100 mg PO QHS 06/22/22 magnesium oxide 400 mg PO QHS supplement 06/22/22 red yeast rice 600 mg tablet 1,200 mg PO DAILY cholesterol 06/22/22 atorvastatin 40 mg tablet 40 mg PO QHS #30 tabs 06/23/22 The patient was counseled on the following discharge medications and changes in medications for homegoing were reviewed. The Reason for Use, instructions for use, and potential side effects were reviewed for all new medications. The patient's questions regarding all of their medications were answered. The patient was able to verbally demonstrate an understanding of their discharge medications.
--- NOTE | 2022-06-23 14:10 | NURSING ---
Reviewed documentation from Student RN
--- NOTE | 2022-06-23 14:29 | CASEMGMT ---
ANOOP DYER attempted to complete ANNA form with patient. Patient has discharged prior to completing ANNA form.
== END 2022-06-23 12:23 | disposition home or self-care (01) ==
LOC: ED 11:36 → PCU 12:11
PROVIDERS: Admitting Provider Internal Medicine; Emergency Provider Emergency Medicine; PCP Family Medicine; Visit Provider Internal Medicine
DX: R07.89 Other chest pain (principal); G40.909 Epilepsy, unspecified, not intractable, without status epilepticus; R00.2 Palpitations; Z79.899 Other long term (current) drug therapy; R06.00 Dyspnea, unspecified; Z82.49 Family history of ischemic heart disease and other diseases of the circulatory system
CPT/HCPCS: 36415; 71045; 78452; 80048; 80061; 83735; 84443; 84484; 85025; 93005; 93017; 96360; 96361; 96372; 99221; 99252; 99285; A9500; J7030; A4216; G0378; G0463

== ENCOUNTER → 2022-09-02 | Outpatient (CLI) | payer MEDICARE, SELFPAY ==
--- NOTE | 2022-09-03 09:28 | BRONCHALL ---
Bronchoprovocation Challenge Bronchoprovocation Challenge Bronchoprovocation Challenge: INTRODUCTION: The patient is a 67-year-old female that presents for a methacholine inhalation challenge secondary to a diagnosis of chest tightness. INTERPRETATION: Initial spirometry did not show any large airways obstructive ventilatory defect with preserved airflows throughout. The patient was then given progressively increasing doses of methacholine in a standardized fashion. At no point during testing did the patient's FEV1 level drop to the threshold criteria to be considered a positive test. IMPRESSION: Negative methacholine inhalation challenge.
== END | disposition home or self-care (01) ==
PROVIDERS: PCP Family Medicine
DX: R07.89 Other chest pain (principal); R06.02 Shortness of breath
CPT/HCPCS: 94070; 95070